=== PATIENT | female | born 1980 | race Caucasian/White ===

== ENCOUNTER 2024-05-06 14:44 | Outpatient (RCR) | payer BC, SELFPAY | END 2024-05-30 23:59 | disposition home or self-care (01) | LOC: SCTC 14:44 | PROVIDERS: PCP Family Medicine; Referring Provider Family Medicine; Visit Provider Nurse Practitioner Family | DX: Z09 Encounter for follow-up examination after completed treatment for conditions other than malignant neoplasm (principal); Z86.2 Personal history of diseases of the blood and blood-forming organs and certain disorders involving the immune mechanism; E53.8 Deficiency of other specified B group vitamins; Z87.891 Personal history of nicotine dependence; Z88.8 Allergy status to other drugs, medicaments and biological substances; Z98.84 Bariatric surgery status | CPT/HCPCS: 99212; G0463 ==

== ENCOUNTER → 2024-05-06 | Outpatient (CLI) | payer BC, SELFPAY ==
[2024-05-06 08:54] LABS: Basophils % (Auto) 0 % (0-2.5); Eosinophils # (Auto) 0.2 Thou/mm3 (0.0-0.5); Eosinophils % (Auto) 3 % (0-10); Hematocrit 45.6 % (36.0-46.0); Hemoglobin 14.6 g/dL (12.0-16.0); Immature Granulocytes % (Auto) 0 % (0-0); Immature Granulocytes Auto 0.02 Thou/mm3 (0.00-0.00); Immature Reticulocyte Fraction 5.2 % (3.0-15.9); Lymphocytes # (Auto) 1.8 Thou/mm3 (1.0-4.8); Lymphocytes % (Auto) 32 % (10-50); Mean Corpuscular Hemoglobin 27.8 pg (25.0-35.0); Mean Corpuscular Volume 87 fL (80-100); Monocytes # (Auto) 0.4 Thou/mm3 (0.0-0.8); Monocytes % (Auto) 7 % (0-12); Neutrophils # (Auto) 3.3 Thou/mm3 (1.8-7.7); Neutrophils % (Auto) 57 % (37-80); Nucleated Red Blood Cell % 0 /100 WBC (0); Platelet Count 212 Thou/mm3 (140-440); RDW Standard Deviation 60.9 fL (36.4-46.3); Red Blood Count 5.26 Miln/mm3 (4.00-5.20); Reticulocyte % (Auto) 1.9 % (0.5-1.5); Reticulocyte Absolute Auto 97.3 Biln/L (25.0-75.0); Reticulocyte Hgb Content 33.4 pg (28.0-35.0); White Blood Count 5.7 Thou/mm3 (3.6-11.0)
[2024-05-06 09:26] LABS: Folate 17.34 ng/mL (>5.38); Vitamin B12 327 pg/mL (211-911)
[2024-05-06 09:27] LABS: Alanine Aminotransferase 25 U/L (10-49); Albumin, Serum 4.3 gm/dL (3.5-5.0); Alkaline Phosphatase 50 U/L (46-116); Anion Gap 2 (7-16); Aspartate Amino Transferase 18 U/L (0-34); BUN/Creatinine Ratio 17 Ratio (12-20); Bilirubin,Total 0.5 mg/dL (0.3-1.2); Blood Urea Nitrogen 12 mg/dL (9-23); Calcium 9.8 mg/dL (8.3-10.6); Calcium (Corrected) 9.8 mg/dL (8.5-10.1); Carbon Dioxide 28.8 mMol/L (20.0-31.0); Chloride 109 mMol/L (98-107); Creatinine (Component) 0.7 mg/dL (0.6-1.3); Globulin 2.2 gm/dL (2.3-3.5); Glucose 100 mg/dL (74-106); Osmolality,Calculated 279 (275-295); Potassium 4.7 mMol/L (3.4-5.1); Sodium 140 mMol/L (136-145); Total Protein 6.5 gm/dL (5.7-8.2); eGFR > 60 See Note
[2024-05-06 09:51] LABS: Ferritin 131 ng/mL (7.3-270.7); Total Iron Binding Capacity 294 mcg/dL (250-425)
[2024-05-06 10:02] LABS: Iron 113 mcg/dL (50-170); Percent Iron Saturation 38 % (20-55); Unsaturated Iron Binding 181 (225-295)
== END | disposition home or self-care (01) ==
LOC: SCTO 07:30
PROVIDERS: PCP Family Medicine; Referring Provider Nurse Practitioner Family; Visit Provider Nurse Practitioner Family
DX: D50.9 Iron deficiency anemia, unspecified (principal)
CPT/HCPCS: 36415; 80053; 82607; 82728; 82746; 83540; 83550; 85025; 85046

== ENCOUNTER → 2024-05-22 | Outpatient (CLI) | payer BC, SELFPAY ==
[2024-05-22 13:25] LABS: Basophils % (Auto) 0 % (0-2.5); Eosinophils # (Auto) 0.2 Thou/mm3 (0.0-0.5); Eosinophils % (Auto) 2 % (0-10); Hematocrit 46.6 % (36.0-46.0); Hemoglobin 15.1 g/dL (12.0-16.0); Immature Granulocytes % (Auto) 0 % (0-0); Immature Granulocytes Auto 0.03 Thou/mm3 (0.00-0.00); Immature Reticulocyte Fraction 6.2 % (3.0-15.9); Lymphocytes # (Auto) 1.9 Thou/mm3 (1.0-4.8); Lymphocytes % (Auto) 18 % (10-50); Mean Corpuscular HGB Conc 32.4 g/dl (31.0-37.0); Mean Corpuscular Hemoglobin 28.6 pg (25.0-35.0); Mean Corpuscular Volume 88 fL (80-100); Monocytes # (Auto) 0.7 Thou/mm3 (0.0-0.8); Monocytes % (Auto) 7 % (0-12); Neutrophils # (Auto) 7.4 Thou/mm3 (1.8-7.7); Neutrophils % (Auto) 73 % (37-80); Nucleated Red Blood Cell % 0 /100 WBC (0); Platelet Count 233 Thou/mm3 (140-440); RDW Standard Deviation 57.8 fL (36.4-46.3); Red Blood Count 5.28 Miln/mm3 (4.00-5.20); Reticulocyte % (Auto) 1.7 % (0.5-1.5); Reticulocyte Absolute Auto 91.9 Biln/L (25.0-75.0); Reticulocyte Hgb Content 34.4 pg (28.0-35.0); White Blood Count 10.2 Thou/mm3 (3.6-11.0)
[2024-05-22 14:40] LABS: Alanine Aminotransferase 34 U/L (10-49); Albumin, Serum 4.3 gm/dL (3.5-5.0); Alkaline Phosphatase 61 U/L (46-116); Anion Gap 6 (7-16); Aspartate Amino Transferase 26 U/L (0-34); BUN/Creatinine Ratio 21 Ratio (12-20); Bilirubin,Total 0.4 mg/dL (0.3-1.2); Blood Urea Nitrogen 21 mg/dL (9-23); Calcium 9.3 mg/dL (8.3-10.6); Calcium (Corrected) 9.3 mg/dL (8.5-10.1); Carbon Dioxide 21.7 mMol/L (20.0-31.0); Chloride 111 mMol/L (98-107); Globulin 2.1 gm/dL (2.3-3.5); Glucose 94 mg/dL (74-106); Osmolality,Calculated 280 (275-295); Potassium 4.5 mMol/L (3.4-5.1); Sodium 139 mMol/L (136-145); Total Protein 6.4 gm/dL (5.7-8.2); eGFR > 60 See Note
[2024-05-22 15:45] LABS: Ferritin 44 ng/mL (7.3-270.7); Folate 16.62 ng/mL (>5.38); Iron 127 mcg/dL (50-170); Percent Iron Saturation 42 % (20-55); Total Iron Binding Capacity 300 mcg/dL (250-425); Unsaturated Iron Binding 173 (225-295); Vitamin B12 277 pg/mL (211-911)
== END | disposition home or self-care (01) ==
LOC: SCTO 11:59
PROVIDERS: PCP Family Medicine; Referring Provider Nurse Practitioner Family; Visit Provider Nurse Practitioner Family
DX: D50.9 Iron deficiency anemia, unspecified (principal)
CPT/HCPCS: 36415; 80053; 82607; 82728; 82746; 83540; 83550; 85025; 85046

== ENCOUNTER → 2024-06-03 | Outpatient (CLI) | payer BC, SELFPAY ==
[2024-06-03 16:53] LABS: Basophils % (Auto) 0 % (0-2.5); Eosinophils # (Auto) 0.2 Thou/mm3 (0.0-0.5); Eosinophils % (Auto) 2 % (0-10); Hematocrit 44.9 % (36.0-46.0); Hemoglobin 14.8 g/dL (12.0-16.0); Immature Granulocytes % (Auto) 0 % (0-0); Immature Granulocytes Auto 0.02 Thou/mm3 (0.00-0.00); Immature Reticulocyte Fraction 8.3 % (3.0-15.9); Lymphocytes # (Auto) 2.3 Thou/mm3 (1.0-4.8); Lymphocytes % (Auto) 28 % (10-50); Mean Corpuscular Hemoglobin 29.4 pg (25.0-35.0); Mean Corpuscular Volume 89 fL (80-100); Monocytes # (Auto) 0.5 Thou/mm3 (0.0-0.8); Monocytes % (Auto) 6 % (0-12); Neutrophils # (Auto) 5.4 Thou/mm3 (1.8-7.7); Neutrophils % (Auto) 64 % (37-80); Nucleated Red Blood Cell % 0 /100 WBC (0); Platelet Count 218 Thou/mm3 (140-440); RDW Standard Deviation 52.2 fL (36.4-46.3); Red Blood Count 5.03 Miln/mm3 (4.00-5.20); Reticulocyte % (Auto) 1.8 % (0.5-1.5); Reticulocyte Absolute Auto 91.5 Biln/L (25.0-75.0); Reticulocyte Hgb Content 35.3 pg (28.0-35.0); White Blood Count 8.4 Thou/mm3 (3.6-11.0)
[2024-06-03 17:05] LABS: Alanine Aminotransferase 36 U/L (10-49); Albumin, Serum 4.6 gm/dL (3.5-5.0); Albumin/Globulin Ratio 2.2 (1.2-2.2); Alkaline Phosphatase 64 U/L (46-116); Anion Gap 6 (7-16); Aspartate Amino Transferase 28 U/L (0-34); BUN/Creatinine Ratio 21 Ratio (12-20); Bilirubin,Total 0.4 mg/dL (0.3-1.2); Blood Urea Nitrogen 21 mg/dL (9-23); Calcium 9.7 mg/dL (8.3-10.6); Calcium (Corrected) 9.7 mg/dL (8.5-10.1); Carbon Dioxide 28.8 mMol/L (20.0-31.0); Chloride 102 mMol/L (98-107); Globulin 2.1 gm/dL (2.3-3.5); Glucose 78 mg/dL (74-106); Osmolality,Calculated 275 (275-295); Potassium 4.7 mMol/L (3.4-5.1); Sodium 137 mMol/L (136-145); Total Protein 6.7 gm/dL (5.7-8.2); eGFR > 60 See Note
[2024-06-03 17:10] LABS: Folate 18.27 ng/mL (>5.38); Vitamin B12 554 pg/mL (211-911)
[2024-06-03 19:47] LABS: Ferritin 44 ng/mL (7.3-270.7); Iron 76 mcg/dL (50-170); Percent Iron Saturation 23 % (20-55); Total Iron Binding Capacity 317 mcg/dL (250-425); Unsaturated Iron Binding 241 (225-295)
== END | disposition home or self-care (01) ==
LOC: SCTO 15:37
PROVIDERS: PCP Family Medicine; Referring Provider Nurse Practitioner Family; Visit Provider Nurse Practitioner Family
DX: D50.9 Iron deficiency anemia, unspecified (principal)
CPT/HCPCS: 36415; 80053; 82607; 82728; 82746; 83540; 83550; 85025; 85046

== ENCOUNTER 2024-06-08 15:22 | Outpatient (RCR) | payer BC, SELFPAY | END 2024-06-30 23:59 | disposition home or self-care (01) | LOC: SCTC 15:22 | PROVIDERS: PCP Family Medicine; Referring Provider Family Medicine; Visit Provider Nurse Practitioner Family | DX: Z09 Encounter for follow-up examination after completed treatment for conditions other than malignant neoplasm (principal); Z86.2 Personal history of diseases of the blood and blood-forming organs and certain disorders involving the immune mechanism; Z98.84 Bariatric surgery status; F17.210 Nicotine dependence, cigarettes, uncomplicated | CPT/HCPCS: 99212; G0463 ==

== ENCOUNTER → 2024-07-10 | Outpatient (CLI) | payer BC, SELFPAY ==
[2024-07-10 17:37] LABS: Basophils % (Auto) 0 % (0-2.5); Eosinophils # (Auto) 0.1 Thou/mm3 (0.0-0.5); Eosinophils % (Auto) 1 % (0-10); Hematocrit 44.3 % (36.0-46.0); Hemoglobin 14.9 g/dL (12.0-16.0); Immature Granulocytes % (Auto) 0 % (0-0); Immature Granulocytes Auto 0.03 Thou/mm3 (0.00-0.00); Lymphocytes # (Auto) 2.3 Thou/mm3 (1.0-4.8); Lymphocytes % (Auto) 24 % (10-50); Mean Corpuscular HGB Conc 33.6 g/dl (31.0-37.0); Mean Corpuscular Hemoglobin 30.3 pg (25.0-35.0); Mean Corpuscular Volume 90 fL (80-100); Monocytes # (Auto) 0.8 Thou/mm3 (0.0-0.8); Monocytes % (Auto) 9 % (0-12); Neutrophils # (Auto) 6.2 Thou/mm3 (1.8-7.7); Neutrophils % (Auto) 66 % (37-80); Nucleated Red Blood Cell % 0 /100 WBC (0); Platelet Count 207 Thou/mm3 (140-440); RDW Standard Deviation 44.9 fL (36.4-46.3); Red Blood Count 4.91 Miln/mm3 (4.00-5.20); White Blood Count 9.4 Thou/mm3 (3.6-11.0)
== END | disposition home or self-care (01) ==
LOC: COPL 16:48
PROVIDERS: PCP Internal Medicine; Referring Provider Internal Medicine; Visit Provider Internal Medicine
DX: D50.9 Iron deficiency anemia, unspecified (principal)
CPT/HCPCS: 36415; 85025

== ENCOUNTER → 2024-08-12 | Outpatient (CLI) | payer BC, SELFPAY ==
[2024-08-12 08:31] LABS: Basophils % (Auto) 0 % (0-2.5); Eosinophils # (Auto) 0.1 Thou/mm3 (0.0-0.5); Eosinophils % (Auto) 2 % (0-10); Hematocrit 45.9 % (36.0-46.0); Hemoglobin 15.4 g/dL (12.0-16.0); Immature Granulocytes % (Auto) 0 % (0-0); Immature Granulocytes Auto 0.02 Thou/mm3 (0.00-0.00); Immature Reticulocyte Fraction 5.8 % (3.0-15.9); Lymphocytes # (Auto) 1.2 Thou/mm3 (1.0-4.8); Lymphocytes % (Auto) 19 % (10-50); Mean Corpuscular HGB Conc 33.6 g/dl (31.0-37.0); Mean Corpuscular Hemoglobin 30.7 pg (25.0-35.0); Mean Corpuscular Volume 92 fL (80-100); Monocytes # (Auto) 0.5 Thou/mm3 (0.0-0.8); Monocytes % (Auto) 9 % (0-12); Neutrophils # (Auto) 4.3 Thou/mm3 (1.8-7.7); Neutrophils % (Auto) 70 % (37-80); Nucleated Red Blood Cell % 0 /100 WBC (0); Platelet Count 189 Thou/mm3 (140-440); RDW Standard Deviation 42.9 fL (36.4-46.3); Red Blood Count 5.01 Miln/mm3 (4.00-5.20); Reticulocyte % (Auto) 2.1 % (0.5-1.5); Reticulocyte Absolute Auto 103.7 Biln/L (25.0-75.0); Reticulocyte Hgb Content 33.3 pg (28.0-35.0); White Blood Count 6.1 Thou/mm3 (3.6-11.0)
[2024-08-12 08:41] LABS: Alanine Aminotransferase 31 U/L (10-49); Albumin, Serum 4.3 gm/dL (3.5-5.0); Albumin/Globulin Ratio 1.9 (1.2-2.2); Alkaline Phosphatase 67 U/L (46-116); Anion Gap 6 (7-16); Aspartate Amino Transferase 27 U/L (0-34); BUN/Creatinine Ratio 24 Ratio (12-20); Bilirubin,Total 0.4 mg/dL (0.3-1.2); Blood Urea Nitrogen 17 mg/dL (9-23); Calcium 9.5 mg/dL (8.3-10.6); Calcium (Corrected) 9.5 mg/dL (8.5-10.1); Carbon Dioxide 25.1 mMol/L (20.0-31.0); Chloride 111 mMol/L (98-107); Creatinine (Component) 0.7 mg/dL (0.6-1.3); Globulin 2.3 gm/dL (2.3-3.5); Glucose 101 mg/dL (74-106); Osmolality,Calculated 284 (275-295); Potassium 4.5 mMol/L (3.4-5.1); Sodium 142 mMol/L (136-145); Total Protein 6.6 gm/dL (5.7-8.2); eGFR > 60 See Note
[2024-08-12 08:44] LABS: Ferritin 73 ng/mL (7.3-270.7); Iron 106 mcg/dL (50-170); Percent Iron Saturation 37 % (20-55); Total Iron Binding Capacity 285 mcg/dL (250-425); Unsaturated Iron Binding 179 (225-295)
[2024-08-12 08:46] LABS: Folate 17.99 ng/mL (>5.38); Vitamin B12 460 pg/mL (211-911)
== END | disposition home or self-care (01) ==
LOC: COPL 07:15
PROVIDERS: PCP Family Medicine; Referring Provider Nurse Practitioner Family; Visit Provider Nurse Practitioner Family
DX: D50.9 Iron deficiency anemia, unspecified (principal)
CPT/HCPCS: 36415; 80053; 82607; 82728; 82746; 83540; 83550; 85025; 85046

== ENCOUNTER 2024-08-13 15:09 | Outpatient (RCR) | payer BC, SELFPAY | END 2024-08-28 23:59 | disposition home or self-care (01) | LOC: SCTC 15:09 | PROVIDERS: PCP Family Medicine; Referring Provider Family Medicine; Visit Provider Nurse Practitioner Family | DX: Z09 Encounter for follow-up examination after completed treatment for conditions other than malignant neoplasm (principal); Z86.2 Personal history of diseases of the blood and blood-forming organs and certain disorders involving the immune mechanism; Z98.84 Bariatric surgery status; Z87.891 Personal history of nicotine dependence | CPT/HCPCS: 99212; G0463 ==

== ENCOUNTER → 2024-10-19 | Outpatient (CLI) | payer BC, SELFPAY ==
[2024-10-19 16:14] LABS: Basophils % (Auto) 1 % (0-2.5); Eosinophils # (Auto) 0.2 Thou/mm3 (0.0-0.5); Eosinophils % (Auto) 3 % (0-10); Hematocrit 42.3 % (36.0-46.0); Hemoglobin 13.9 g/dL (12.0-16.0); Immature Granulocytes % (Auto) 0 % (0-0); Immature Granulocytes Auto 0.02 Thou/mm3 (0.00-0.00); Lymphocytes # (Auto) 2.3 Thou/mm3 (1.0-4.8); Lymphocytes % (Auto) 29 % (10-50); Mean Corpuscular HGB Conc 32.9 g/dl (31.0-37.0); Mean Corpuscular Hemoglobin 30.2 pg (25.0-35.0); Mean Corpuscular Volume 92 fL (80-100); Monocytes # (Auto) 0.6 Thou/mm3 (0.0-0.8); Monocytes % (Auto) 7 % (0-12); Neutrophils # (Auto) 4.7 Thou/mm3 (1.8-7.7); Neutrophils % (Auto) 60 % (37-80); Nucleated Red Blood Cell % 0 /100 WBC (0); Platelet Count 229 Thou/mm3 (140-440); RDW Standard Deviation 41.6 fL (36.4-46.3); White Blood Count 7.8 Thou/mm3 (3.6-11.0)
[2024-10-19 16:47] LABS: Alanine Aminotransferase 29 U/L (10-49); Albumin/Globulin Ratio 1.7 (1.2-2.2); Alkaline Phosphatase 64 U/L (46-116); Anion Gap 5 (7-16); Aspartate Amino Transferase 28 U/L (0-34); BUN/Creatinine Ratio 20 Ratio (12-20); Bilirubin,Total 0.3 mg/dL (0.3-1.2); Blood Urea Nitrogen 14 mg/dL (9-23); Calcium 8.9 mg/dL (8.3-10.6); Calcium (Corrected) 8.9 mg/dL (8.5-10.1); Carbon Dioxide 26.1 mMol/L (20.0-31.0); Chloride 110 mMol/L (98-107); Creatinine (Component) 0.7 mg/dL (0.6-1.3); Globulin 2.3 gm/dL (2.3-3.5); Glucose 84 mg/dL (74-106); Osmolality,Calculated 280 (275-295); Potassium 4.2 mMol/L (3.4-5.1); Sodium 141 mMol/L (136-145); Total Protein 6.3 gm/dL (5.7-8.2); eGFR > 60 See Note
[2024-10-19 16:50] LABS: Folate 12.46 ng/mL (>5.38); Vitamin B12 206 pg/mL (211-911)
[2024-10-19 16:53] LABS: Ferritin 8 ng/mL (7.3-270.7); Iron 27 mcg/dL (50-170); Percent Iron Saturation 7 % (20-55); Total Iron Binding Capacity 342 mcg/dL (250-425); Unsaturated Iron Binding 315 (225-295)
== END | disposition home or self-care (01) ==
LOC: SCTO 15:41
PROVIDERS: PCP Family Medicine; Referring Provider Nurse Practitioner Family; Visit Provider Nurse Practitioner Family
DX: D50.9 Iron deficiency anemia, unspecified (principal)
CPT/HCPCS: 36415; 80053; 82607; 82728; 82746; 83540; 83550; 85025

== ENCOUNTER 2024-10-21 14:51 | Outpatient (RCR) | payer BC, SELFPAY | END 2024-10-28 23:59 | disposition home or self-care (01) | LOC: SCTC 14:51 | PROVIDERS: PCP Family Medicine; Referring Provider Family Medicine; Visit Provider Nurse Practitioner Family | DX: D50.9 Iron deficiency anemia, unspecified (principal); Z98.84 Bariatric surgery status; E53.8 Deficiency of other specified B group vitamins; Z87.891 Personal history of nicotine dependence | CPT/HCPCS: 99212; G0463 ==

== ENCOUNTER 2024-12-14 13:07 | Outpatient (RCR) | payer BC, SELFPAY | END 2024-12-28 23:59 | disposition home or self-care (01) | LOC: SCTC 13:07 | PROVIDERS: PCP Family Medicine; Referring Provider Family Medicine; Visit Provider Nurse Practitioner Family | DX: D50.0 Iron deficiency anemia secondary to blood loss (chronic) (principal); N92.0 Excessive and frequent menstruation with regular cycle; Z98.84 Bariatric surgery status; E53.8 Deficiency of other specified B group vitamins; F17.210 Nicotine dependence, cigarettes, uncomplicated | CPT/HCPCS: 96365; A4216; J1756; J7040; J7050 ==

== ENCOUNTER → 2025-01-14 | Outpatient (CLI) | payer BC, SELFPAY ==
[2025-01-14 13:14] LABS: Basophils # (Auto) 0.0 Thou/mm3 (0.0-0.2); Basophils % (Auto) 0 % (0-2.5); Eosinophils # (Auto) 0.2 Thou/mm3 (0.0-0.5); Eosinophils % (Auto) 2 % (0-10); Hematocrit 44.2 % (36.0-46.0); Hemoglobin 14.9 g/dL (12.0-16.0); Immature Granulocytes Auto 0.02 Thou/mm3 (0.00-0.00); Lymphocytes # (Auto) 1.7 Thou/mm3 (1.0-4.8); Lymphocytes % (Auto) 19 % (10-50); Mean Corpuscular HGB Conc 33.7 g/dl (31.0-37.0); Mean Corpuscular Hemoglobin 29.8 pg (25.0-35.0); Mean Corpuscular Volume 88 fL (80-100); Monocytes # (Auto) 0.5 Thou/mm3 (0.0-0.8); Monocytes % (Auto) 5 % (0-12); Neutrophils # (Auto) 6.8 Thou/mm3 (1.8-7.7); Neutrophils % (Auto) 74 % (37-80); Nucleated Red Blood Cell # 0.00 Thou/mm3 (0.00-0.00); Nucleated Red Blood Cell % 0 /100 WBC (0); Platelet Count 224 Thou/mm3 (140-440); RDW Standard Deviation 44.7 fL (36.4-46.3); Red Blood Count 5.00 Miln/mm3 (4.00-5.20); White Blood Count 9.2 Thou/mm3 (3.6-11.0)
[2025-01-14 13:24] LABS: Folate 13.47 ng/mL (>5.38); Vitamin B12 295 pg/mL (211-911)
[2025-01-14 13:26] LABS: Anion Gap 9 (7-16); BUN/Creatinine Ratio 14 Ratio (12-20); Blood Urea Nitrogen 11 mg/dL (9-23); Carbon Dioxide 23.6 mMol/L (20.0-31.0); Chloride 108 mMol/L (98-107); Creatinine (Component) 0.8 mg/dL (0.6-1.3); Potassium 4.2 mMol/L (3.4-5.1); Sodium 141 mMol/L (136-145)
[2025-01-14 13:27] LABS: Alanine Aminotransferase 15 U/L (10-49); Albumin, Serum 4.1 gm/dL (3.5-5.0); Albumin/Globulin Ratio 1.8 (1.2-2.2); Alkaline Phosphatase 67 U/L (46-116); Aspartate Amino Transferase 18 U/L (0-34); Bilirubin,Total 0.4 mg/dL (0.3-1.2); Calcium 8.8 mg/dL (8.3-10.6); Calcium (Corrected) 8.8 mg/dL (8.5-10.1); Globulin 2.3 gm/dL (2.3-3.5); Glucose 83 mg/dL (74-106); Osmolality,Calculated 279 (275-295); Total Protein 6.4 gm/dL (5.7-8.2); eGFR > 60 See Note
[2025-01-14 13:31] LABS: Ferritin 178 ng/mL (7.3-270.7); Iron 125 mcg/dL (50-170); Percent Iron Saturation 44 % (20-55); Total Iron Binding Capacity 284 mcg/dL (250-425); Unsaturated Iron Binding 159 (225-295)
== END | disposition home or self-care (01) ==
LOC: SCTO 12:02
PROVIDERS: PCP Family Medicine; Referring Provider Nurse Practitioner Family; Visit Provider Nurse Practitioner Family
DX: D50.9 Iron deficiency anemia, unspecified (principal)
CPT/HCPCS: 36415; 80053; 82607; 82728; 82746; 83540; 83550; 85025

== ENCOUNTER 2025-01-18 13:01 | Outpatient (RCR) | payer BC, SELFPAY | END 2025-01-28 23:59 | disposition home or self-care (01) | LOC: SCTC 13:01 | PROVIDERS: PCP Family Medicine; Referring Provider Family Medicine; Visit Provider Nurse Practitioner Family | DX: D50.9 Iron deficiency anemia, unspecified (principal); Z98.84 Bariatric surgery status; E53.8 Deficiency of other specified B group vitamins; Z87.891 Personal history of nicotine dependence; Z78.0 Asymptomatic menopausal state | CPT/HCPCS: 96365; 99212; A4216; J1756; J7040; J7050; G0463 ==

== ENCOUNTER → 2025-03-15 | Outpatient (CLI) | payer BC, SELFPAY ==
[2025-03-15 17:41] LABS: Basophils # (Auto) 0.0 Thou/mm3 (0.0-0.2); Basophils % (Auto) 0 % (0-2.5); Eosinophils # (Auto) 0.2 Thou/mm3 (0.0-0.5); Eosinophils % (Auto) 2 % (0-10); Hematocrit 45.5 % (36.0-46.0); Hemoglobin 15.2 g/dL (12.0-16.0); Immature Granulocytes Auto 0.03 Thou/mm3 (0.00-0.00); Immature Reticulocyte Fraction 7.4 % (3.0-15.9); Lymphocytes # (Auto) 2.6 Thou/mm3 (1.0-4.8); Lymphocytes % (Auto) 26 % (10-50); Mean Corpuscular HGB Conc 33.4 g/dl (31.0-37.0); Mean Corpuscular Hemoglobin 30.2 pg (25.0-35.0); Mean Corpuscular Volume 90 fL (80-100); Monocytes # (Auto) 0.7 Thou/mm3 (0.0-0.8); Monocytes % (Auto) 7 % (0-12); Neutrophils # (Auto) 6.7 Thou/mm3 (1.8-7.7); Neutrophils % (Auto) 65 % (37-80); Nucleated Red Blood Cell # 0.00 Thou/mm3 (0.00-0.00); Nucleated Red Blood Cell % 0 /100 WBC (0); Platelet Count 248 Thou/mm3 (140-440); RDW Standard Deviation 44.5 fL (36.4-46.3); Red Blood Count 5.04 Miln/mm3 (4.00-5.20); Reticulocyte % (Auto) 2.6 % (0.5-1.5); Reticulocyte Absolute Auto 129.5 Biln/L (25.0-75.0); Reticulocyte Hgb Content 33.6 pg (28.0-35.0); White Blood Count 10.4 Thou/mm3 (3.6-11.0)
[2025-03-15 20:24] LABS: Folate 19.86 ng/mL (>5.38); Vitamin B12 291 pg/mL (211-911)
[2025-03-15 20:25] LABS: Ferritin 48 ng/mL (7.3-270.7); Iron 35 mcg/dL (50-170); Percent Iron Saturation 11 % (20-55); Total Iron Binding Capacity 309 mcg/dL (250-425); Unsaturated Iron Binding 274 (225-295)
[2025-03-15 20:26] LABS: Alanine Aminotransferase 32 U/L (10-49); Albumin, Serum 4.5 gm/dL (3.5-5.0); Albumin/Globulin Ratio 1.7 (1.2-2.2); Alkaline Phosphatase 68 U/L (46-116); Anion Gap 12 (7-16); Aspartate Amino Transferase 26 U/L (0-34); BUN/Creatinine Ratio 14 Ratio (12-20); Bilirubin,Total 0.4 mg/dL (0.3-1.2); Blood Urea Nitrogen 10 mg/dL (9-23); Calcium 9.4 mg/dL (8.3-10.6); Calcium (Corrected) 9.4 mg/dL (8.5-10.1); Carbon Dioxide 21.6 mMol/L (20.0-31.0); Chloride 104 mMol/L (98-107); Creatinine (Component) 0.7 mg/dL (0.6-1.3); Globulin 2.6 gm/dL (2.3-3.5); Glucose 78 mg/dL (74-106); LDH (Lactate Dehydrogenase) 164 U/L (120-246); Osmolality,Calculated 273 (275-295); Potassium 4.0 mMol/L (3.4-5.1); Sodium 138 mMol/L (136-145); Total Protein 7.1 gm/dL (5.7-8.2); eGFR > 60 See Note
[2025-03-22 09:21] LABS: Haptoglobin* 69 mg/dL (43-212)
== END | disposition home or self-care (01) ==
LOC: SCTO 15:43
PROVIDERS: PCP Family Medicine; Referring Provider Nurse Practitioner Family; Visit Provider Nurse Practitioner Family
DX: D50.9 Iron deficiency anemia, unspecified (principal)
CPT/HCPCS: 36415; 80053; 82607; 82728; 82746; 83010; 83540; 83550; 83615; 85025; 85046

== ENCOUNTER 2025-03-25 14:19 | Outpatient (RCR) | payer BC, SELFPAY | END 2025-03-30 23:59 | disposition home or self-care (01) | LOC: SCTC 14:19 | PROVIDERS: PCP Family Medicine; Referring Provider Family Medicine; Visit Provider Nurse Practitioner Family | DX: D50.9 Iron deficiency anemia, unspecified (principal); Z98.84 Bariatric surgery status; E53.8 Deficiency of other specified B group vitamins; Z87.891 Personal history of nicotine dependence | CPT/HCPCS: 96365; 99212; A4216; J1756; J3490; J7040; G0463 ==

== ENCOUNTER 2025-04-08 14:11 | Outpatient (RCR) | payer BC, SELFPAY | END 2025-04-30 23:59 | disposition home or self-care (01) | LOC: SCTC 14:11 | PROVIDERS: PCP Family Medicine; Referring Provider Family Medicine; Visit Provider Nurse Practitioner Family | DX: D50.9 Iron deficiency anemia, unspecified (principal); E53.8 Deficiency of other specified B group vitamins; Z98.84 Bariatric surgery status; Z87.891 Personal history of nicotine dependence | CPT/HCPCS: 96365; J1756; J3490 ==

== ENCOUNTER 2025-05-20 14:30 | Outpatient (RCR) | payer BC, SELFPAY | END 2025-05-30 23:59 | disposition home or self-care (01) | LOC: SCTC 14:30 | PROVIDERS: PCP Family Medicine; Referring Provider Family Medicine; Visit Provider Nurse Practitioner Family | DX: D50.9 Iron deficiency anemia, unspecified (principal); Z98.84 Bariatric surgery status; E53.8 Deficiency of other specified B group vitamins; Z87.891 Personal history of nicotine dependence | CPT/HCPCS: 96365; J1756; J3490; J7040 ==

== ENCOUNTER → 2025-05-24 | Outpatient (CLI) | payer BC, SELFPAY ==
[2025-05-24 17:45] LABS: Basophils # (Auto) 0.0 Thou/mm3 (0.0-0.2); Basophils % (Auto) 0 % (0-2.5); Eosinophils # (Auto) 0.2 Thou/mm3 (0.0-0.5); Eosinophils % (Auto) 3 % (0-10); Hematocrit 46.0 % (36.0-46.0); Hemoglobin 14.8 g/dL (12.0-16.0); Immature Granulocytes Auto 0.03 Thou/mm3 (0.00-0.00); Immature Reticulocyte Fraction 6.6 % (3.0-15.9); Lymphocytes # (Auto) 2.1 Thou/mm3 (1.0-4.8); Lymphocytes % (Auto) 25 % (10-50); Mean Corpuscular HGB Conc 32.2 g/dl (31.0-37.0); Mean Corpuscular Hemoglobin 30.0 pg (25.0-35.0); Mean Corpuscular Volume 93 fL (80-100); Monocytes # (Auto) 0.5 Thou/mm3 (0.0-0.8); Monocytes % (Auto) 6 % (0-12); Neutrophils # (Auto) 5.6 Thou/mm3 (1.8-7.7); Neutrophils % (Auto) 66 % (37-80); Nucleated Red Blood Cell # 0.00 Thou/mm3 (0.00-0.00); Nucleated Red Blood Cell % 0 /100 WBC (0); Platelet Count 208 Thou/mm3 (140-440); RDW Standard Deviation 45.3 fL (36.4-46.3); Red Blood Count 4.93 Miln/mm3 (4.00-5.20); Reticulocyte % (Auto) 2.5 % (0.5-1.5); Reticulocyte Absolute Auto 121.3 Biln/L (25.0-75.0); Reticulocyte Hgb Content 36.0 pg (28.0-35.0); White Blood Count 8.5 Thou/mm3 (3.6-11.0)
[2025-05-24 18:01] LABS: Alanine Aminotransferase 19 U/L (10-49); Albumin, Serum 4.1 gm/dL (3.5-5.0); Albumin/Globulin Ratio 2.0 (1.2-2.2); Alkaline Phosphatase 83 U/L (46-116); Anion Gap 9 (7-16); Aspartate Amino Transferase 20 U/L (0-34); BUN/Creatinine Ratio 19 Ratio (12-20); Bilirubin,Total 0.2 mg/dL (0.3-1.2); Blood Urea Nitrogen 13 mg/dL (9-23); Calcium 9.5 mg/dL (8.3-10.6); Calcium (Corrected) 9.5 mg/dL (8.5-10.1); Carbon Dioxide 24.0 mMol/L (20.0-31.0); Chloride 112 mMol/L (98-107); Creatinine (Component) 0.7 mg/dL (0.6-1.3); Globulin 2.1 gm/dL (2.3-3.5); Glucose 108 mg/dL (74-106); Osmolality,Calculated 289 (275-295); Potassium 4.3 mMol/L (3.4-5.1); Sodium 145 mMol/L (136-145); Total Protein 6.2 gm/dL (5.7-8.2); eGFR > 60 See Note
[2025-05-25 08:38] LABS: Ferritin 220 ng/mL (7.3-270.7); Iron 64 mcg/dL (50-170); Percent Iron Saturation 26 % (20-55); Total Iron Binding Capacity 245 mcg/dL (250-425); Unsaturated Iron Binding 181 (225-295)
[2025-05-25 08:40] LABS: Folate 10.32 ng/mL (>5.38); Vitamin B12 262 pg/mL (211-911)
== END | disposition home or self-care (01) ==
LOC: SCTO 16:49
PROVIDERS: PCP Family Medicine; Referring Provider Nurse Practitioner Family; Visit Provider Nurse Practitioner Family
DX: D50.9 Iron deficiency anemia, unspecified (principal)
CPT/HCPCS: 36415; 80053; 82607; 82728; 82746; 83540; 83550; 85025; 85046